=== PATIENT | male | born 1995 | race American Indian/Alaskan Native ===

== ENCOUNTER 2020-11-08 04:59 | Emergency (ER) | payer SELFPAY ==
[2020-11-08 05:22] VITALS: BP 149/106
[2020-11-08] MEDS ORDERED: ceFAZolin 1 GM VIAL IM ONE (09:15)
[2020-11-08] MEDS ORDERED: HYDROcodone/ACETAMINOPHEN 5-325 MG TAB PO ONE (09:15)
--- NOTE | 2020-11-08 09:20 | Emergency Department Report ---
HPI - General Chief Complaint: Skin/Abscess/Foreign Body Time Seen by Provider: 11/08/20 09:04 - HPI HPI: Room 30 The patient is a 25-year-old male present with chief complaint of scalp and neck pain. The patient states approximate 3 weeks ago he noticed swelling and tenderness to the occipital region of the scalp. Patient denies any preceding trauma. Patient states he did cut his hair around the time he notices symptoms but it was not cut bald. The patient states since then he has noticed lumps to the back of the right side of his neck that are also tender. Patient denies history of fever. Patient states she is also had sore throat and soreness on the lateral aspects of his tongue. The patient currently gives his pain a score of 9/10. Patient states he was dropped off at the ED and is not driving ED Past Medical Hx - Past Medical History Previous Medical History?: No - Surgical History Additional Surgical History: hernia - Family History Family history: no significant - Social History Smoking Status: Current Every Day Smoker (1/7 pack/day) Substance Use Type: None (Denies illicit drug use), Alcohol (Occasional) - Medications Home Medications: Home Medications Medication Instructions Recorded Confirmed Last Taken Type HYDROcodone/APAP 5-325 [[place] 1 - 2 each PO Q6HR PRN #12 tablet 11/08/20 Unknown Rx 5/325] Ibuprofen [Motrin 800 MG tab] 800 mg PO Q8HR PRN #20 tablet 11/08/20 Unknown Rx cephALEXin [Keflex] 500 mg PO Q6HR #40 capsule 11/08/20 Unknown Rx ED Review of Systems ROS: Stated complaint: SORE THROAT/EARACHE/KNOTS ON BACK OF NECK/CP Other details as noted in HPI Constitutional: denies: fever Eyes: denies: eye pain ENT: throat pain Respiratory: no symptoms reported Cardiovascular: denies: chest pain Endocrine: no symptoms reported Gastrointestinal: denies: abdominal pain Genitourinary: denies: dysuria Musculoskeletal: denies: back pain Skin: as per HPI Neurological: denies: headache Physical Exam - Physical Exam Vital Signs: Vital Signs 11/08/20 05:19 Temperature 98.4 F Pulse Rate 103 H Respiratory 18 Rate Blood Pressure 149/106 O2 Sat by Pulse 100 Oximetry Physical Exam: GENERAL: The patient is well-developed well-nourished male sitting in chair not appearing to be in acute distress. [] HEENT: Normocephalic. Atraumatic. Extraocular motions are intact. There is an approximately 5 cm diameter region of induration and tenderness to the occipital scalp. No fluctuance appreciated. No drainage appreciated. NECK: Supple. 2 large tender mobile right posterior cervical lymph nodes palpa ble CHEST/LUNGS:There is no respiratory distress noted. ABDOMEN:There is no abdominal distention. SKIN: There is an approximately 5 cm diameter region of induration to the occipital scalp. No fluctuance. No appreciable rubor NEURO: The patient is awake, alert, and oriented. The patient is cooperative. The patient has no focal neurologic deficits. The patient has normal speech. GCS 15 MUSCULOSKELETAL: There is no evidence of acute injury. ED Course Vital Signs 11/08/20 05:19 Temperature 98.4 F Pulse Rate 103 H Respiratory 18 Rate Blood Pressure 149/106 O2 Sat by Pulse 100 Oximetry ED Medical Decision Making - Differential Diagnosis Folliculitis, cellulitis Critical care attestation.: If time is entered above; I have spent that time in minutes in the direct care of this critically ill patient, excluding procedure time. ED Disposition Clinical Impression: Folliculitis, Cervical lymphadenopathy Disposition: [id number] TO HOME OR SELFCARE Is pt being admited?: No Does the pt Need Aspirin: No Condition: Stable Instructions: Folliculitis, Lymphadenopathy Additional Instructions: Return to the emergency department should you develop worsening symptoms, inability to tolerate food or liquids, high fever or any other concerns Prescriptions: cephALEXin [Keflex] 500 mg PO Q6HR #40 capsule Ibuprofen [Motrin 800 MG tab] 800 mg PO Q8HR PRN #20 tablet PRN Reason: Pain, Moderate (4-6) HYDROcodone/APAP 5-325 [[place] 5/325] 1 - 2 each PO Q6HR PRN #12 tablet PRN Reason: Pain Referrals: [facility] [Provider Group] - 3-5 Days Time of Disposition: 09:23
== END 2020-11-08 10:01 | disposition home or self-care (01) ==
LOC: ED 04:59
DX: L73.9 Follicular disorder, unspecified (principal); L04.0 Acute lymphadenitis of face, head and neck; F17.200 Nicotine dependence, unspecified, uncomplicated; Z72.89 Other problems related to lifestyle; Z79.899 Other long term (current) drug therapy
CPT/HCPCS: 96372; 99282; J0690